=== PATIENT | female | born 1985 | race Hispanic/Latino ===

== ENCOUNTER 2018-08-10 10:24 | Emergency (ER) | payer MEDICAID, SELFPAY ==
[2018-08-10 10:55] LABS: Bilirubin Small (Negative); Blood, Urine Negative (Negative); Glucose, Urine (Dipstick) Negative (Negative); Leukocyte Negative (Negative); Nitrite Negative (Negative); Protein, Urine (Dipstick) 30 mg/dL (Neg-Trace); Specific Gravity, Urine 1.025 (1.005-1.030); Urobilinogen 0.2 mg/dL (0.2-1.0); pH, Urine 5.5 (5.0-9.0)
[2018-08-10 10:59] LABS: Clarity SL HAZY (Clear)
[2018-08-10 11:06] LABS: WBC/HPF 0-3 HPF (0-3)
== END 2018-08-10 11:33 | disposition home or self-care (01) ==
LOC: NAV ERS 10:24
DX: R30.0 Dysuria (principal); R07.0 Pain in throat; F17.210 Nicotine dependence, cigarettes, uncomplicated
CPT/HCPCS: 81003; 81015; 99283

== ENCOUNTER 2019-09-20 15:34 | Emergency (ER) | payer OTHER, SELFPAY ==
[~2019-09-20 15:34] MED LIST: Iopamidol 370 76% 100 ML VIAL ONE
[2019-09-20] MEDS ORDERED: Mag-Al Plus 1200 MG/1200 MG/120 MG/30 ML UDCUP ONE (16:05)
[2019-09-20] MEDS ORDERED: Lidocaine Viscous Sol 2% 15 ml UD Cup ONE (16:05)
[2019-09-20 16:24] LABS: #Basophils 0.1 thou/uL (0.0-0.2); #Eosinphils 0.1 thou/uL (0.0-0.7); #Lymphocytes 1.5 thou/uL (1.20-3.40); #Monocytes 0.6 thou/uL (0.11-0.59); #Neutrophils 11.6 thou/uL (1.40-6.50); %Basophils 0.9 % (0.0-1.0); %Eosinophils 0.9 % (0.0-10.0); %Neutrophils 83.1 % (42.0-75.0); Hemoglobin 13.2 g/dL (12.0-16.0); Mean Corpuscular HGB CONC 31.9 g/dL (32.0-36.0); Mean Corpuscular Hemoglobin 29.7 pg (27.0-31.0); Mean Corpuscular Volume 93.2 fL (78.0-98.0); Mean Platelet Volume 7.8 fL (7.4-10.4); Platelet Count 280 thou/uL (130-400); RBC Distribution Width 12.3 % (11.5-14.5); Red Blood Cell (RBC) Count 4.44 mill/uL (4.20-5.40); White Blood Cell (WBC) Count 13.9 thou/uL (4.8-10.8)
[2019-09-20 16:27] LABS: Bilirubin Negative (Negative); Blood, Urine Negative (Negative); Glucose, Urine (Dipstick) Negative (Negative); Leukocyte Negative (Negative); Nitrite Negative (Negative); Protein, Urine (Dipstick) Negative (Neg-Trace)
[2019-09-20 16:28] LABS: Clarity SL HAZY (Clear)
[2019-09-20 16:29] LABS: BHCG - Serum Negative (NEGATIVE); Pregs Control Bar Appear? YES (CONTROL BAR)
[2019-09-20 16:41] LABS: ALT (SGPT) 402 U/L (8-55); AST (SGOT) 766 U/L (5-34); Alkaline Phosphatase 126 U/L (40-110); Anion Gap 13 mmol/L (10-20); BUN (Urea Nitrogen) 8 mg/dL (7.0-18.7); Bilirubin, Total 0.8 mg/dL (0.2-1.2); Calc. Creatinine Clearance 0 mL/min (70-130); Calcium 9.3 mg/dL (7.8-10.44); Carbon Dioxide 24 mmol/L (22-29); Chloride 106 mmol/L (98-107); Estimated GFR-MDRD Greater than 90; Glucose 87 mg/dL (70-105); Lipase 21 U/L (8-78); Potassium 3.9 mmol/L (3.5-5.1); Sodium 139 mmol/L (136-145)
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
== END 2019-09-20 18:30 | disposition home or self-care (01) ==
LOC: NAV ERS 15:34
DX: S22.31XA Fracture of one rib, right side, initial encounter for closed fracture (principal); K29.00 Acute gastritis without bleeding; F17.210 Nicotine dependence, cigarettes, uncomplicated; V89.2XXA Person injured in unspecified motor-vehicle accident, traffic, initial encounter
CPT/HCPCS: 71260; 74177; 80053; 81003; 83690; 84703; 85025; Q9967

== ENCOUNTER 2021-05-08 11:23 | Emergency (ER) | payer OTHER, SELFPAY ==
[2021-05-08 22:56] LABS: SARS-CoV-2 PCR by NAA DETECTED (NotDetected)
== END 2021-05-08 12:03 | disposition home or self-care (01) ==
LOC: NAV ERS 11:23
DX: U07.1 COVID-19 (principal); J06.9 Acute upper respiratory infection, unspecified; F17.210 Nicotine dependence, cigarettes, uncomplicated
CPT/HCPCS: 87804; 99283; U0003; U0005

== ENCOUNTER 2022-04-30 10:26 | Emergency (ER) | payer OTHER ==
[2022-04-30 11:28] LABS: Pregnancy Test - Urine (BHCG) Negative (Negative); Pregu Control Background? CLEAR/WHITE (CLR/WHITE); Pregu Control Bar Appear? YES (CONTROL BAR)
[2022-04-30] MEDS ORDERED: Ibuprofen 800 MG TAB ONE (11:34)
== END 2022-04-30 12:01 | disposition home or self-care (01) ==
LOC: NAV ERS 10:26
DX: L73.9 Follicular disorder, unspecified (principal); F17.210 Nicotine dependence, cigarettes, uncomplicated
CPT/HCPCS: 81025; 99283

== ENCOUNTER 2023-12-23 12:19 | Emergency (ER) | payer MEDICAID ==
[2023-12-23] MEDS ORDERED: Acetaminophen 500 MG TAB ONE (12:44)
[2023-12-23] MEDS ORDERED: Naproxen 500 MG TAB ONE (12:44)
== END 2023-12-23 13:10 | disposition home or self-care (01) ==
LOC: NAV ERS 12:19
DX: S93.412A Sprain of calcaneofibular ligament of left ankle, initial encounter (principal); X50.1XXA Overexertion from prolonged static or awkward postures, initial encounter

== ENCOUNTER 2024-03-25 18:24 | Emergency (ER) | payer MEDICAID ==
[2024-03-25 18:53] LABS: Bilirubin Negative (Negative); Blood, Urine Negative (Negative); Clarity Clear (Clear); Glucose, Urine (Dipstick) Negative (Negative); Ketone, Urine Trace mg/dL (Negative); Leukocyte Negative (Negative); Nitrite Negative (Negative); Protein, Urine (Dipstick) Negative (Neg-Trace); Urobilinogen 0.2 mg/dL (Less than 2)
[2024-03-25 18:55] LABS: Pregnancy Test - Urine (BHCG) Negative (Negative); Pregu Control Background? CLEAR/WHITE (CLR/WHITE); Pregu Control Bar Appear? YES (CONTROL BAR)
[2024-03-25 19:08] LABS: Bacteria/HPF Rare-Few HPF (None Seen); CAUTI Indications for Culture Pelvic or flank pain; RBC/HPF 0-3 HPF (0-3); Urine Culture Reflex No No; WBC/HPF 0-3 HPF (0-3)
[2024-03-25] MEDS ORDERED: Doxycycline 100 MG CAP ONE (19:17)
[2024-03-25] MEDS ORDERED: Ibuprofen 200 MG TAB ONE (19:17)
[2024-03-25] MEDS ORDERED: cefTRIAXone (ROCEPHIN) 250 MG VIAL ONE (19:18)
[2024-03-27 13:00] LABS: GC by PCR, EndoCx Swab *Indeterminate (NotDetected)
== END 2024-03-25 19:40 | disposition home or self-care (01) ==
LOC: NAV ERS 18:24
DX: R10.2 Pelvic and perineal pain (principal)
CPT/HCPCS: 81001; 81025; 87480; 87510; 87591; 87660; 96372; 99284; J0696